=== PATIENT | male | born 1945 | race Caucasian/White ===

== ENCOUNTER → 2020-12-13 | Outpatient (CLI) | payer MEDICARE ==
--- NOTE | 2020-12-13 09:35 | REP ---
INDICATION: HX KIDNEY STONES COMPARISON: None TECHNIQUE: Axial noncontrast images from the lung bases to the pubic symphysis with coronal and sagittal reformations. This CT examination was performed using the following dose reduction techniques: Automated exposure control, adjustment of mA and/or kv according to the patient's size, and use of iterative reconstruction technique. FINDINGS: Lung bases are clear. Visualized heart and pericardium normal. Liver, spleen, pancreas, gallbladder, and bilateral adrenal glands are normal. The kidneys demonstrate moderate renovascular calcifications. There is a 2.5 mm nonobstructing right renal calculus in the anterior midpole and there appear to be few small 1-2 mm nonobstructing left renal calculi identified. There is no evidence for perinephric stranding, hydroureteronephrosis or obvious obstructing ureteral calculus. The enteric system is unremarkable and without obstruction or acute inflammatory process. Normal terminal ileum and appendix identified in the right lower quadrant. Few sigmoid diverticula noted without acute diverticulitis. Pelvis demonstrates normal bladder and mildly prominent prostate gland with mass effect on the base of the bladder. Small fat containing inguinal hernias noted. No ascites. No free air. No adenopathy. No focal inflammatory stranding. Atherosclerotic changes to the aorta and vasculature noted without aneurysm. Musculoskeletal structures are intact and without acute osseous abnormality. IMPRESSION: 1. Few small nonobstructing bilateral nephroliths. 2. Atherosclerotic disease. 3. Mildly enlarged prostate gland with mild mass effect on the base of the bladder. <Electronically signed by Rene Rider > 12/13/20 0916
== END ==
LOC: M PLAIMG 08:45
PROVIDERS: ATTEND Nurse Practitioner Women's Health
DX: N20.0 Calculus of kidney (principal)